=== PATIENT | female | born 1995 | race Caucasian/White ===

== ENCOUNTER → 2016-09-23 | Outpatient (CLI) | payer SELFPAY | LOC: RAD 15:14 | PROVIDERS: ATTEND Nurse Practitioner Women's Health | DX: Z34.01 Encounter for supervision of normal first pregnancy, first trimester (principal) | CPT/HCPCS: 76801 ==

== ENCOUNTER 2017-02-28 11:30 | Outpatient (CLI) | payer MEDICAID | END 2017-02-28 12:45 | disposition home or self-care (01) | LOC: LC 11:30 | PROVIDERS: ATTEND Obstetrics & Gynecology | PROC: 4A1HXCZ Monitoring of Products of Conception, Cardiac Rate, External Approach (ICD-10-PCS; principal; 2017-02-28) | DX: Z34.93 Encounter for supervision of normal pregnancy, unspecified, third trimester (principal); Z36 Encounter for antenatal screening of mother; Z3A.33 33 weeks gestation of pregnancy | CPT/HCPCS: 36415; 59025; 83036 ==

== ENCOUNTER 2017-03-02 19:41 | Outpatient (CLI) | payer MEDICAID ==
[2017-03-02 20:49] LABS: APPEARANCE,URINE CLEAR; BILIRUBIN,URINE NEGATIVE (NEGATIVE); GLUCOSE, URINE NEGATIVE (NEGATIVE); KETONES,URINE NEGATIVE (NEGATIVE); LEUKOCYTE ESTERASE,URINE NEGATIVE (NEGATIVE); NITRITE,URINE NEGATIVE (NEGATIVE); PROTEIN,URINE NEGATIVE (NEGATIVE); URINE SPECIFIC GRAVITY 1.005; UROBILINOGEN,URINE NEGATIVE mg/dL (<2.0)
[2017-03-02] MEDS ORDERED: RINGERS SOLUTION,LACTATED 1,000 ML IV PRN (20:56)
[2017-03-02 21:02] LABS: URINE BARBITURATES SCREEN NEGATIVE; URINE METHADONE SCREEN NEGATIVE; URINE OPIATES LOW NEGATIVE; URINE PHENCYCLIDINE SCREEN NEGATIVE
== END 2017-03-02 21:47 | disposition home or self-care (01) ==
LOC: LC 19:41
PROVIDERS: ATTEND Obstetrics & Gynecology
PROC: 4A1HXCZ Monitoring of Products of Conception, Cardiac Rate, External Approach (ICD-10-PCS; principal; 2017-03-02)
DX: Z34.93 Encounter for supervision of normal pregnancy, unspecified, third trimester (principal); Z36 Encounter for antenatal screening of mother; Z3A.33 33 weeks gestation of pregnancy
CPT/HCPCS: 80307; 81001

== ENCOUNTER 2017-03-02 21:58 | Emergency (ER) | payer MEDICAID ==
[2017-03-02] MEDS ORDERED: NORMAL SALINE 1000 ML 1,000 ML IV ONE (22:42)
[2017-03-03 00:04] LABS: ALANINE AMINOTRANSFERASE 17 U/L (9-52); ALBUMIN 3.5 g/dL (3.5-5.0); ALKALINE PHOSPHATASE 107 U/L (38-126); ANION GAP 9 (5-19); ASPARTATE AMINO TRANSFERASE 22 U/L (14-36); BILIRUBIN,DIRECT 0.3 mg/dL (0.0-0.4); BILIRUBIN,TOTAL 0.3 mg/dL (0.2-1.3); BLOOD UREA NITROGEN 10 mg/dL (7-20); CALCIUM 9.8 mg/dL (8.4-10.2); CARBON DIOXIDE 22 mmol/L (22-30); CHLORIDE 106 mmol/L (98-107); CREATININE RESULT 0.52 mg/dL (0.52-1.25); GLUCOSE 82 mg/dL (75-110); POTASSIUM 3.7 mmol/L (3.6-5.0); SODIUM 136.7 mmol/L (137-145); TOTAL PROTEIN 6.7 g/dL (6.3-8.2)
--- NOTE | 2017-03-03 00:05 | ER Document Report ---
ED General - General Chief Complaint: Diarrhea Stated Complaint: BLOOD IN STOOL Time Seen by Provider: 03/02/17 22:34 Notes: Patient is a 21-year-old female at 34 weeks who presents with 3 days of diarrhea, intermittently containing small streaks of blood. She denies any jia hematochezia or melena. She has not had any vomiting and notes she has been able to tolerate oral intake. No history of similar symptoms in the past. No known sick contacts. She was seen for a labor check earlier today and everything was noted to be normal. She denies any abdominal pain. No dysuria or flank pain. She has not had any fever or constitutional symptoms. Nothing improves or worsens her symptoms. TRAVEL OUTSIDE OF THE [place] IN LAST 30 DAYS: No - Related Data Allergies/Adverse Reactions: benztropine mesylate [From [employer] Allergy (Verified 03/02/17 22:20) Past Medical History - General Information source: Patient - Social History Smoking Status: Never Smoker Frequency of alcohol use: None Drug Abuse: None Lives with: Parents Family History: Reviewed & Not Pertinent Renal/ Medical History: Denies: Hx Peritoneal Dialysis Psychiatric Medical History: Reports: Hx Attention Deficit Hyperactivity Disorder, Hx Bipolar Disorder, Hx Depression - Immunizations Immunizations up to date: Yes Hx Diphtheria, Pertussis, Tetanus Vaccination: Yes Review of Systems - Review of Systems Notes: Constitutional: Negative for fever. HENT: Negative for sore throat. Eyes: Negative for visual changes. Cardiovascular: Negative for chest pain. Respiratory: Negative for shortness of breath. Gastrointestinal: Positive for diarrhea Genitourinary: Negative for dysuria. Musculoskeletal: Negative for back pain. Skin: Negative for rash. Neurological: Negative for headaches, weakness or numbness. 10 point ROS negative except as marked above and in HPI. Physical Exam - Vital signs Vitals: Temp Pulse Resp BP Pulse Ox 98.0 F 79 16 134/75 H 99 03/02/17 22:20 03/02/17 22:20 03/02/17 22:20 03/02/17 22:20 03/02/17 22:20 Interpretation: Normal Notes: PHYSICAL EXAMINATION: GENERAL: Well-appearing, well-nourished and in no acute distress. HEAD: Atraumatic, normocephalic. EYES: Pupils equal round and reactive to light, extraocular movements intact, sclera anicteric, conjunctiva are normal. ENT: nares patent, oropharynx clear without exudates. Moist mucous membranes. NECK: Normal range of motion, supple without lymphadenopathy LUNGS: Breath sounds clear to auscultation bilaterally and equal. No wheezes rales or rhonchi. HEART: Regular rate and rhythm without murmurs ABDOMEN: Gravid uterus, soft, nontender, normoactive bowel sounds. No guarding , no rebound. No masses appreciated. EXTREMITIES: Normal range of motion, no pitting or edema. No cyanosis. NEUROLOGICAL: No focal neurological deficits. Moves all extremities spontaneously and on command. PSYCH: Normal mood, normal affect. SKIN: Warm, Dry, normal turgor, no rashes or lesions noted. Course - Re-evaluation Re-evalutation: 03/03/17 00:02 Presentation of an overall well-appearing patient in no acute distress with complaints of diarrhea with intermittent blood in the stool. This is consistent with likely viral gastroenteritis. Patient has no abdominal tenderness on exam and specifically no tenderness in the RLQ, LLQ, RUQ. Overall well hydrated on exam. Able to tolerate oral intake here in the emergency department. Low clinical suspicion for any acute life-threatening etiology based on exam and history including acute cholecystitis, SBO, appendicitis, nephrolithiasis, or pylonephritis. CMP without evidence of acute hepatitis or significant dehydration. Will plan for discharge at this time with return precautions and followup recommendations. - Vital Signs Vital signs: Temp Pulse Resp BP Pulse Ox 98.2 F 77 17 113/66 98 03/03/17 00:38 03/03/17 00:38 03/03/17 00:38 03/03/17 00:38 03/03/17 00:38 - Laboratory Result Diagrams: 03/02/17 23:20 03/02/17 23:20 Laboratory results interpreted by me: 03/02/17 03/02/17 23:20 23:20 WBC 12.4 H RBC 3.68 L Hgb 10.9 L Hct 31.7 L Absolute Neutrophils 9.2 H Sodium 136.7 L Discharge - Discharge Clinical Impression: Diarrhea Qualifiers: Diarrhea type: unspecified type Qualified Code(s): R19.7 - Diarrhea, unspecified Condition: Good Disposition: HOME, SELF-CARE Additional Instructions: Your symptoms are likely due to a viral illness and should resolve in the next several days. Continue to stay hydrated with plenty of solution such as Gatorade or Pedialyte. Please return if you develop severe abdominal pain, pass out, become unable to tolerate any oral fluids for 12 more hours, or any other symptoms that are concerning to you.
[2017-03-03 00:06] LABS: ABSOLUTE EOSINOPHILS # (AUTO) 0.1 10^3/uL (0.0-0.6); ABSOLUTE LYMPHOCYTES (AUTO) 2.4 10^3/uL (0.5-4.7); ABSOLUTE MONOCYTES (AUTO) 0.6 10^3/uL (0.1-1.4); ABSOLUTE NEUT (AUTO) 9.2 10^3/uL (1.7-8.2); BASOPHILS % (AUTO) 0.3 % (0-2); EOSINOPHILS % (AUTO) 0.9 % (0-6); HEMATOCRIT 31.7 % (36.0-47.0); HEMOGLOBIN 10.9 g/dL (12.0-15.5); LYMPHOCYTES % (AUTO) 19.7 % (13-45); MEAN CORPUSCULAR HEMOGLOBIN 29.8 pg (27.0-33.4); MEAN CORPUSCULAR HGB CONC 34.5 g/dL (32.0-36.0); MEAN CORPUSCULAR VOLUME 86 fl (80-97); MONOCYTES % (AUTO) 4.8 % (3-13); RED BLOOD COUNT 3.68 10^6/uL (3.72-5.28); SEGMENTED NEUTROPHILS % (AUTO) 74.3 % (42-78); WHITE BLOOD COUNT 12.4 10^3/uL (4.0-10.5)
[2017-03-03 00:44] VITALS: BP 113/66
== END 2017-03-03 00:35 | disposition home or self-care (01) ==
LOC: ER 21:58
DX: O26.893 Other specified pregnancy related conditions, third trimester (principal); R19.7 Diarrhea, unspecified; O99.613 Diseases of the digestive system complicating pregnancy, third trimester; K92.1 Melena; Z3A.34 34 weeks gestation of pregnancy; Z88.8 Allergy status to other drugs, medicaments and biological substances
CPT/HCPCS: 99284; 96360; 36415; 85025; 80053; J7030

== ENCOUNTER 2017-03-21 10:06 | Outpatient (CLI) | payer MEDICAID ==
[2017-03-21 11:03] LABS: APPEARANCE,URINE CLOUDY; BILIRUBIN,URINE NEGATIVE (NEGATIVE); GLUCOSE, URINE NEGATIVE (NEGATIVE); KETONES,URINE NEGATIVE (NEGATIVE); LEUKOCYTE ESTERASE,URINE LARGE (NEGATIVE); NITRITE,URINE NEGATIVE (NEGATIVE); PROTEIN,URINE NEGATIVE (NEGATIVE); URINE SPECIFIC GRAVITY 1.012; UROBILINOGEN,URINE NEGATIVE mg/dL (<2.0)
[2017-03-21 11:13] LABS: URINE BARBITURATES SCREEN NEGATIVE; URINE METHADONE SCREEN NEGATIVE; URINE OPIATES LOW NEGATIVE; URINE PHENCYCLIDINE SCREEN NEGATIVE
--- NOTE | 2017-03-21 11:33 | Non Stress Test Report ---
Non Stress Test Datetime Report Generated by CPN: 03/21/2017 11:33 DEMOGRAPHIC Test Number: 3 EGA NST: 36.5 EGA NST: 34.0 EGA NST: 33.5 INDICATION Indication for Study: Ordered by Provider Indication for Study (NST) Other: LC MONITORING Monitor Explained: Monitor Explained; Test Explained; Patient Verbalized Understanding Monitor Explained: Monitor Explained; Test Explained; Patient Verbalized Understanding Monitor Explained: Monitor Explained; Test Explained; Patient Verbalized Understanding Time on Monitor: 03/21/2017 10:39 Time on Monitor: 03/02/2017 20:11 Time on Monitor: 02/28/2017 11:42 Time off Monitor: 03/21/2017 11:20 Time off Monitor: 03/02/2017 21:43 NST Duration: 41 NST Duration: 92 NST INTERVENTIONS NST Interventions: PO Hydration; Reposition Patient NST Interventions: PO Hydration; IV Fluids Physician Notified NST: H Jairo CNM Physician Notified NST: Dr. Saenz BABY A: [id number] BABY A Movement : Present Movement : Present Contraction Frequency : irregular Contraction Frequency : irregular FHR Baseline : 145 FHR Baseline : 120 Accelerations : 15X15 Accelerations : 15X15 Decelerations : None Decelerations : None Variability : Moderate 6-25bpm Variability : Moderate 6-25bpm NST Review: Meets Criteria for Reactive NST NST Review: Meets Criteria for Reactive NST NST Review: Meets Criteria for Reactive NST NST Review and Verified By : Logan Jasmine RNC NST Review and Verified By : Rajesh Finn RN NST Review and Verified By : Caren Kaur RNC NST Results: Reactive NST Results: Reactive NST REPORT Report Trigger: Send Report
--- NOTE | 2017-03-21 12:07 | RADIOLOGY REPORT (SQ) ---
EXAM DESCRIPTION: U/S OB LIMITED COMPLETED DATE/TIME: 03/21/2017 11:58 am REASON FOR STUDY: MINNA, leaking fluid COMPARISON: OB ultrasound 09/23/2016 TECHNIQUE: Limited transabdominal grayscale ultrasound for evaluation of specific requested obstetri chandni parameters. LIMITATIONS: None. FINDINGS: CERVICAL LENGTH: Not well seen transabdominally MINNA: Total MINNA, 19.6 cm FHR: 139 beats per minute. PRESENTATION: Cephalic. OTHER: Anterior placenta IMPRESSION: Total MINNA 19.6 cm Trimester of : Third trimester - 28 weeks to delivery. TECHNICAL DOCUMENTATION: JOB ID: [id number] [facility]- All Rights Reserved
[2017-03-21 14:37] LABS: CHLAM PCR NOT DETECTED (NOT DETECT)
== END 2017-03-21 12:13 | disposition home or self-care (01) ==
LOC: LC 10:06
PROVIDERS: ATTEND Obstetrics & Gynecology
PROC: 4A1HXCZ Monitoring of Products of Conception, Cardiac Rate, External Approach (ICD-10-PCS; principal; 2017-03-21)
DX: Z34.93 Encounter for supervision of normal pregnancy, unspecified, third trimester (principal)
CPT/HCPCS: 59025; 87210; 81001; 87081; 80307; 87491; 87591; 76815; Q0114

== ENCOUNTER 2017-03-21 13:49 | Inpatient (IN) | payer MEDICAID ==
[2017-03-21 14:31] LABS: APPEARANCE,URINE SLIGHTLY-CLOUDY; BILIRUBIN,URINE NEGATIVE (NEGATIVE); GLUCOSE, URINE NEGATIVE (NEGATIVE); KETONES,URINE NEGATIVE (NEGATIVE); LEUKOCYTE ESTERASE,URINE LARGE (NEGATIVE); NITRITE,URINE NEGATIVE (NEGATIVE); PROTEIN,URINE 30 mg/dL (NEGATIVE); URINE SPECIFIC GRAVITY 1.015; UROBILINOGEN,URINE NEGATIVE mg/dL (<2.0)
[2017-03-21 15:01] LABS: URINE BARBITURATES SCREEN NEGATIVE; URINE METHADONE SCREEN NEGATIVE; URINE OPIATES LOW NEGATIVE; URINE PHENCYCLIDINE SCREEN NEGATIVE
[2017-03-21] MEDS ORDERED: PENICILLIN G-K 5 MILLION UNIT VIAL ONE (15:26)
[2017-03-21 15:31] LABS: ABSOLUTE EOSINOPHILS # (AUTO) 0.1 10^3/uL (0.0-0.6); ABSOLUTE LYMPHOCYTES (AUTO) 1.9 10^3/uL (0.5-4.7); ABSOLUTE MONOCYTES (AUTO) 0.5 10^3/uL (0.1-1.4); ABSOLUTE NEUT (AUTO) 11.4 10^3/uL (1.7-8.2); BASOPHILS % (AUTO) 0.3 % (0-2); EOSINOPHILS % (AUTO) 0.4 % (0-6); HEMATOCRIT 36.1 % (36.0-47.0); HEMOGLOBIN 12.5 g/dL (12.0-15.5); HGB HCT DIFFERENCE 1.4; LYMPHOCYTES % (AUTO) 13.5 % (13-45); MEAN CORPUSCULAR HEMOGLOBIN 29.6 pg (27.0-33.4); MEAN CORPUSCULAR HGB CONC 34.7 g/dL (32.0-36.0); MEAN CORPUSCULAR VOLUME 86 fl (80-97); MONOCYTES % (AUTO) 3.7 % (3-13); RED BLOOD COUNT 4.22 10^6/uL (3.72-5.28); RED CELL DISTRIBUTION WIDTH 12.9 % (11.5-14.0); SEGMENTED NEUTROPHILS % (AUTO) 82.1 % (42-78); WHITE BLOOD COUNT 13.9 10^3/uL (4.0-10.5)
[2017-03-21] MEDS ORDERED: OXYTOCIN/NORMAL SALINE 20 UNIT/1,000 ML RTUINJ ONE (17:05)
[2017-03-21] MEDS ORDERED: BUPIVACAINE HCL 0.25 % INJ/PF (2.5 MG/1 ML) 30 ML VIAL ONE (17:30)
[2017-03-21] MEDS ORDERED: FENTANYL/BUPIVACAINE/NS/PF 200 MCG/100 ML RTUINJ EPI ONE (17:30)
[2017-03-21] MEDS ORDERED: EPHEDRINE SULFATE INJ 50 MG/1 ML AMPULE ONE (17:30)
[2017-03-21] MEDS ORDERED: MEASLES,MUMPS&RUBELLA VACC/PF 0.5 ML VIAL SUBCUT PRN (18:57)
[2017-03-21] MEDS ORDERED: NA PHOS,M-B/NA PHOS,DI-BA (ADULT) 133 ML ENEMA PR PRN (18:57)
[2017-03-21] MEDS ORDERED: ACETAMINOPHEN 650 MG SUPP.RECT PR PRN (18:57)
[2017-03-21] MEDS ORDERED: GLYCERIN/WITCH HAZEL LEAF 1 EACH MED..PAD TP PRN (18:57)
[2017-03-21] MEDS ORDERED: PSEUDOEPHEDRINE HCL 30 MG TABLET PO PRN (18:57)
[2017-03-21] MEDS ORDERED: DIPHENHYDRAMINE HCL 25 MG CAPSULE PO PRN (18:57)
[2017-03-21] MEDS ORDERED: PROMETHAZINE HCL 25 MG TABLET PO PRN (18:57)
[2017-03-21] MEDS ORDERED: DIBUCAINE 1% OINTMENT 28 GM TP PRN (18:57)
[2017-03-21] MEDS ORDERED: PROMETHAZINE HCL 25 MG SUPP.RECT PR PRN (18:57)
[2017-03-21] MEDS ORDERED: BENZOCAINE/MENTHOL AEROSOL SPRAY 56 ML TOP PRN (18:57)
[2017-03-21] MEDS ORDERED: MAGNESIUM HYDROXIDE SUSP 30 ML UDCUP PO PRN (18:57)
[2017-03-21] MEDS ORDERED: DIPH/PERTUSS(ACELL)/TETANUS VAC/PF 0.5 ML SYR (>=10YO) IM PRN (18:57)
[2017-03-21] MEDS ORDERED: ZOLPIDEM TARTRATE 5 MG TABLET PO PRN (18:57)
[2017-03-21] MEDS ORDERED: ACETAMINOPHEN WITH CODEINE #3 TABLET PO PRN ×2 (18:57)
[2017-03-21] MEDS ORDERED: PROMETHAZINE HCL INJ 25 MG/1 ML VIAL IV PRN (18:57)
[2017-03-21] MEDS ORDERED: OXYTOCIN/NORMAL SALINE 20 UNIT/1,000 ML RTUINJ IV PRN (18:57)
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
[2017-03-21] MEDS: IBUPROFEN 800 MG TABLET PO SCH (22:08)
[2017-03-21] MEDS: FAMOTIDINE 20 MG TABLET PO SCH (22:09)
[2017-03-22] MEDS: IBUPROFEN 800 MG TABLET PO SCH ×3 (05:46→21:19)
[2017-03-22 07:29] LABS: HEMATOCRIT 29.7 % (36.0-47.0); HGB HCT DIFFERENCE 1.2; MEAN CORPUSCULAR HEMOGLOBIN 29.7 pg (27.0-33.4); MEAN CORPUSCULAR HGB CONC 34.6 g/dL (32.0-36.0); MEAN CORPUSCULAR VOLUME 86 fl (80-97); RED BLOOD COUNT 3.46 10^6/uL (3.72-5.28); WHITE BLOOD COUNT 17.4 10^3/uL (4.0-10.5)
[2017-03-22 07:30] LABS: HEMOGLOBIN 10.3 g/dL (12.0-15.5)
--- NOTE | 2017-03-22 09:31 | PDOC PROGRESS REPORT ---
Subjective-OB Subjective: Post Delivery Day: 1 21 year old. Denies any needs at this time, states lochia is stable, pain well controlled, voiding without difficulty. Physical Exam (OB) Vital Signs: Temp Pulse Resp BP Pulse Ox 97.9 F 77 16 124/75 99 03/22/17 08:25 03/22/17 08:25 03/22/17 08:25 03/22/17 08:25 03/22/17 08:25 Intake & Output 03/21/17 03/22/17 03/23/17 06:59 06:59 06:59 Weight 89.1 kg - Lochia Lochia Amount: Small 10-25 ml Lochia Color: Rubra/Red - Abdomen Description: Soft, Flat Hernia Present: No Fundal Description: Firm Fundal Height: u/u - u/2 Objective-Diagnostic Laboratory: 03/22/17 07:06 03/21/17 03/21/17 03/21/17 14:00 14:50 14:50 WBC 13.9 H RBC 4.22 Hgb 12.5 Hct 36.1 MCV 86 MCH 29.6 MCHC 34.7 RDW 12.9 Plt Count 234 Seg Neutrophils % 82.1 H Lymphocytes % 13.5 Monocytes % 3.7 Eosinophils % 0.4 Basophils % 0.3 Absolute Neutrophils 11.4 H Absolute Lymphocytes 1.9 Absolute Monocytes 0.5 Absolute Eosinophils 0.1 Absolute Basophils 0.0 Urine Color YELLOW Urine Appearance SLIGHTLY-CLOUDY Urine pH 6.0 Ur Specific Hagerman 1.015 Urine Protein 30 H Urine Glucose (UA) NEGATIVE Urine Ketones NEGATIVE Urine Blood MODERATE H Urine Nitrite NEGATIVE Ur Leukocyte Esterase LARGE H Blood Type B POSITIVE Antibody Screen NEGATIVE 03/22/17 07:06 WBC 17.4 H RBC 3.46 L Hgb 10.3 L D Hct 29.7 L MCV 86 MCH 29.7 MCHC 34.6 RDW 13.0 Plt Count 187 Seg Neutrophils % Lymphocytes % Monocytes % Eosinophils % Basophils % Absolute Neutrophils Absolute Lymphocytes Absolute Monocytes Absolute Eosinophils Absolute Basophils Urine Color Urine Appearance Urine pH Ur Specific Hagerman Urine Protein Urine Glucose (UA) Urine Ketones Urine Blood Urine Nitrite Ur Leukocyte Esterase Blood Type Antibody Screen
[2017-03-22] MEDS: PRENATAL VITAMIN W-O CA NO5/FE FUMARATE/FA CAPSULE PO SCH (10:14)
[2017-03-22] MEDS: FERROUS SULFATE 325 MG TABLET PO SCH ×2 (10:14→18:09)
[2017-03-22] MEDS: SENNOSIDES/DOCUSATE 8.6-50 MG 1 EACH TABLET PO SCH (10:14)
[2017-03-22] MEDS: FAMOTIDINE 20 MG TABLET PO SCH ×2 (10:15→21:18)
[2017-03-22] MEDS: DOCUSATE SODIUM 100 MG CAPSULE PO SCH ×2 (10:15→18:09)
[2017-03-22 22:43] VITALS: BP 132/73
[2017-03-23] MEDS: IBUPROFEN 800 MG TABLET PO SCH ×2 (05:56→14:38)
--- NOTE | 2017-03-23 09:08 | PDOC DISCHARGE SUMMARY ---
Final Diagnosis Discharge Date: 03/23/17 - Final Diagnosis (1) Acute blood loss anemia Is this a current diagnosis for this admission?: Yes (2) Normal vaginal delivery Is this a current diagnosis for this admission?: Yes (3) History of depression Is this a current diagnosis for this admission?: Yes Discharge Data - Discharge Medication Home Medications: Vit,Calc76/Iron/Folic [Pnv 29-1 Tablet] 1 tab PO DAILY 02/28/17 Docusate Sodium [Colace 100 mg Capsule] 100 mg PO BID #60 capsule 03/23/17 Ferrous Sulfate [Feosol 325 mg Tablet] 325 mg PO BID #60 tablet 03/23/17 Ibuprofen [Motrin 800 mg Tablet] 800 mg PO Q8 #60 tablet 03/23/17 Gestational Age: 36.4 Reason(s) for Admission: Onset of Labor, PROM - gbs unknown Procedures: NST Intrapartum Procedure(s): Spontaneous Vaginal Delivery - [place] Data Baby 1 Male at 1 minute: 9 at 5 minutes: 10 Weight: 2640 kg Home with Mother: Yes Complications: Yes - pprom - Diagnosis Test Laboratory: Temp Pulse Resp BP Pulse Ox 98.6 F 79 18 132/73 H 99 03/22/17 20:25 03/22/17 20:25 03/22/17 20:25 03/22/17 20:25 03/22/17 20:25 03/21/17 03/21/17 03/22/17 14:00 14:50 07:06 RBC 4.22 3.46 L Hgb 12.5 10.3 L D Hct 36.1 29.7 L Urine Opiates Screen NEGATIVE - Discharge information/Instructions Discharge Activity: Activity As Tolerated, Pelvic Rest, No tub bath Discharge Diet: Regular Disposition: HOME, SELF-CARE Follow up with: [facility] in: 1, Weeks - extensive social hx, ppd
[2017-03-23] MEDS: PRENATAL VITAMIN W-O CA NO5/FE FUMARATE/FA CAPSULE PO SCH (09:11)
[2017-03-23] MEDS: FAMOTIDINE 20 MG TABLET PO SCH (09:11)
[2017-03-23] MEDS: FERROUS SULFATE 325 MG TABLET PO SCH (09:12)
[2017-03-23] MEDS: SENNOSIDES/DOCUSATE 8.6-50 MG 1 EACH TABLET PO SCH (09:13)
[2017-03-23] MEDS: DOCUSATE SODIUM 100 MG CAPSULE PO SCH (09:20)
--- NOTE | 2017-03-24 09:49 | Delivery Summary ---
Del Sum A-C Datetime Report Generated by CPN: 03/24/2017 09:49 DELIVERY PERSONNEL DELIVERY PERSONNEL: [id number] Delivery Doctor:: Gayathri Elizondo MD Labor and Delivery Nurse:: Juliet Monroe, RNC Labor and Delivery Nurse:: Daily Jones RNu Nursery Nurse:: Obi Monroe RNC Leather Leveler/CANOP[employer] STRINGER: Ilene Salinas CNA II MATERNAL INFORMATION Delivery Anesthesia: Epidural Medications After Delivery: Pitocin Bolus-Please Comment Estimated Blood Loss (ml): 200 Maternal Complications: None LABOR SUMMARY EDC: 04/13/2017 00:00 No. Babies in Womb: 1 (Annotations: Data stored by [facility] on behalf of user) Attempted: No Labor Anesthesia: Epidural LABOR INFORMATION Reason for Induction: Premature Rupture of Membranes Onset of Labor: 03/21/2017 13:30 Complete Dilatation: 03/21/2017 18:28 Oxytocin: Augmentation Group B Beta Strep: 1 NO GROUP B STREPTOCOCCUS RECOVERED Group B Beta Strep: unknown Steroids Given: None Reason Steroids Not Administered: Not Applicable MEMBRANES Membranes Rupture Method: Spontaneous Rupture of Membranes: 03/21/2017 13:30 Length of Rupture (hr): 5.03 Amniotic Fluid Color: Clear Amniotic Fluid Amount: Small Amniotic Fluid Odor: Normal STAGES OF LABOR Stage 1 hr: 4 Stage 1 min: 58 Stage 2 hr: 0 Stage 2 min: 4 Stage 3 hr: 0 Stage 3 min: 5 Total Time in Labor hr: 5 Total Time in Labor min: 7 VAGINAL DELIVERY Episiotomy: None Laceration Type: None Laceration Repair: Not Applicable Sponge Count Correct: Yes CSECTION DELIVERY Primary Indication: N/A Secondary Indication: N/A CSection Incidence: N/A Labor: N/A Elective: N/A CSection Incision: N/A BABY A INFORMATION Infant Delivery Date/Time: 03/21/2017 18:32 Method of Delivery: Vaginal Born in Route : No : N/A Forceps: N/A Vacuum Extraction: N/A Shoulder Dystocia : No PRESENTATION/POSITION BABY A Presentation: Cephalic Cephalic Presentation: Vertex Vertex Position: Left Occipital Anterior Breech Presentation: N/A PLACENTA INFORMATION BABY A Placenta Delivery Time : 03/21/2017 18:37 Placenta Method of Delivery: Spontaneous Placenta Status: Delivered SCORES BABY A Heart Rate 1 min: >100 bpm Resp Effort 1 min: Good Cry Reflex Irritability 1 min: Cough or Sneeze or Pulls Away Muscle Tone 1 min: Active Motion Color 1 min: Body Mascot, Extremities Blue Resuscitation Effort 1 min: Tactile Stimulation SCORE 1 MIN: 9 Heart Rate 5 min: >100 bpm Resp Effort 5 min: Good Cry Reflex Irritability 5 min: Cough or Sneeze or Pulls Away Muscle Tone 5 min: Active Motion Color 5 min: Completely Mascot Resuscitation Effort 5 min: N/A SCORE 5 MIN: 10 Resuscitation Effort 10 min: N/A INFANT INFORMATION BABY A Gestational Age at Delivery: 36.5 Gestational Status: Late - 34- 36.6 Weeks Infant Outcome : Liveborn Infant Condition : Stable Infant Sex: Female IDENTIFICATION BABY A Infant Verification Date/Time: 03/21/2017 18:53 ID Band Number: [id number] Mother's Name Verified: Yes Infant RN Verifying Infant: Caren Camp RNC Additional Verifying Personnel: D Regan US WEIGHT/LENGTH BABY A Birthweight (gm): 2640 Infant Weight (lb): 5 Weight (oz): 13 Infant Length (in): 18.50 Infant Length (cm): 46.99 CORD INFORMATION BABY A No. Cord Vessels: 3 Nuchal Cord : Around Neck x1, Loose Cord Blood Taken: Yes-For Storage (Mom's Blood type +) Infant Suction: None ASSESSMENT BABY A Infant Complications: None Physical Findings at Delivery: Within Normal Limits Infant Respirations: Appears Normal Skin to Skin: Yes Party Host/Hostess/ALS Called : No Care By: D Bellavance RNC Transferred To: Remains with Mother BABY B INFORMATION : N/A SIGNATURES Signature: with User ID: Irena
== END 2017-03-23 16:33 | disposition home or self-care (01) | DRG 775 ==
LOC: LC 13:49 → LR 14:37 → 2N 20:45
PROVIDERS: ADMIT Obstetrics & Gynecology; ATTEND Obstetrics & Gynecology
PROC: 10E0XZZ Delivery of Products of Conception, External Approach (ICD-10-PCS; principal; 2017-03-21)
PROC: 4A1HXCZ Monitoring of Products of Conception, Cardiac Rate, External Approach (ICD-10-PCS; 2017-03-21)
DX: O60.14X0 Preterm labor third trimester with preterm delivery third trimester, not applicable or unspecified (principal); D62 Acute posthemorrhagic anemia; O99.354 Diseases of the nervous system complicating childbirth; O99.324 Drug use complicating childbirth; O69.81X0 Labor and delivery complicated by cord around neck, without compression, not applicable or unspecified; F12.90 Cannabis use, unspecified, uncomplicated; O99.02 Anemia complicating childbirth; O99.334 Smoking (tobacco) complicating childbirth; F17.200 Nicotine dependence, unspecified, uncomplicated; Z62.810 Personal history of physical and sexual abuse in childhood; F32.9 Major depressive disorder, single episode, unspecified; Z3A.36 36 weeks gestation of pregnancy; Z37.0 Single live birth
CPT/HCPCS: 36415; 59025; 80307; 81005; 82962; 85025; 85027; 86592; 86850; 86900; 86901; J2540; J2590; J3490

== ENCOUNTER 2017-09-26 10:10 | Emergency (ER) | payer MEDICAID ==
[2017-09-26] MEDS ORDERED: GUAIFENESIN 600 MG TABLET.SA PO ONE (11:23)
[2017-09-26] MEDS ORDERED: LORATADINE 10 MG TABLET PO ONE (11:23)
[2017-09-26] MEDS ORDERED: PSEUDOEPHEDRINE HCL 30 MG TABLET PO ONE (11:23)
[2017-09-26] MEDS ORDERED: IPRATROPIUM/ALBUTEROL 0.5-2.5 MG/3 ML AMPUL NEB ONE (11:23)
[2017-09-26] MEDS ORDERED: PREDNISONE 20 MG TABLET PO ONE (11:23)
--- NOTE | 2017-09-26 11:28 | ER Document Report ---
ED Respiratory Problem - General Chief Complaint: Cold Symptoms Stated Complaint: COUGH Time Seen by Provider: 09/26/17 11:13 Mode of Arrival: Ambulatory Information source: Patient Notes: 22-year-old female presents to ED for cough cold congestion chest tightness feeling like she cannot get her breath cough or when she takes a deep breath cold flashes and headache 3 days. TRAVEL OUTSIDE OF THE [place] IN LAST 30 DAYS: No - HPI Patient complains to provider of: Cough Onset: Other Duration: Continuous - 3 days Quality of pain: Other - Type Severity: Severe Pain Level: 5 Context: Smoker Chest pain/discomfort: Tightness Cough: Nonproductive Sputum amount: None Associated symptoms: Chest pain/discomfort, Chills, Congestion, Cough, PND, Runny nose, Sinus pain/pressure Similar symptoms previously: Yes Recently seen / treated by doctor: No - Related Data Allergies/Adverse Reactions: benztropine mesylate [From Cogentin] Allergy (Mild, Verified 09/26/17 10:21) Past Medical History - General Information source: Patient - Social History Smoking Status: Current Some Day Smoker Cigarette use (# per day): Yes - 2-3 times a week Chew tobacco use (# tins/day): No Smoking Education Provided: Yes - 4 minutes Frequency of alcohol use: Occasional Drug Abuse: Marijuana - Couple times a week Occupation: none Lives with: Spouse/Significant other Family History: Arthritis, CAD, DM, Hyperlipidemia, Hypertension, Malignancy, Thyroid Disfunction. denies: COPD, CVA Patient has suicidal ideation: No Patient has homicidal ideation: No - Past Medical History Cardiac Medical History: Reports: None Pulmonary Medical History: Reports: Hx Bronchitis EENT Medical History: Reports: None Neurological Medical History: Reports: None Endocrine Medical History: Reports: None Renal/ Medical History: Reports: Other - Kidney infections bladder reflux Malignancy Medical History: Reports: None GI Medical History: Reports: None Musculoskeltal Medical History: Reports Hx Musculoskeletal Trauma Skin Medical History: Reports None Psychiatric Medical History: Reports: Hx Attention Deficit Hyperactivity Disorder, Hx Bipolar Disorder, Hx Depression Traumatic Medical History: Reports: Hx Fractures - Foot Infectious Medical History: Reports: None Surgical Hx: Negative Past Surgical History: Reports: None - Immunizations Immunizations up to date: Yes Hx Diphtheria, Pertussis, Tetanus Vaccination: Yes Review of Systems - Review of Systems Constitutional: Chills, Recent illness EENT: Nose pain, Nose congestion, Nose discharge, Sinus pressure, Sinus discharge Cardiovascular: No symptoms reported Respiratory: Cough, Short of breath Gastrointestinal: No symptoms reported Genitourinary: No symptoms reported Female Genitourinary: No symptoms reported Musculoskeletal: No symptoms reported Skin: No symptoms reported Hematologic/Lymphatic: No symptoms reported Neurological/Psychological: No symptoms reported Physical Exam - Vital signs Vitals: Temp Pulse Resp BP Pulse Ox 98.8 F 81 20 128/74 H 98 09/26/17 10:22 09/26/17 10:22 09/26/17 10:22 09/26/17 10:22 09/26/17 10:22 Interpretation: Normal - General General appearance: Appears well, Alert - HEENT Head: Normocephalic, Atraumatic Eyes: Normal Pupils: PERRL Ears: Normal External canal: Normal Tympanic membrane: Normal Sinus: Normal Nasal: Purulent discharge, Swelling Mouth/Lips: Normal Mucous membranes: Normal Pharynx: Post nasal drainage Neck: Normal - Respiratory Respiratory status: No respiratory distress Chest status: Nontender Breath sounds: Nonproductive cough, Wheezing Chest palpation: Normal - Cardiovascular Rhythm: Regular Heart sounds: Normal auscultation Murmur: No - Abdominal Inspection: Normal Distension: No distension Bowel sounds: Normal Tenderness: Nontender Organomegaly: No organomegaly - Back Back: Normal, Nontender - Extremities General upper extremity: Normal inspection, Nontender, Normal color, Normal ROM , Normal temperature General lower extremity: Normal inspection, Nontender, Normal color, Normal ROM , Normal temperature, Normal weight bearing. No: Los's sign - Neurological Neuro grossly intact: Yes Cognition: Normal Orientation: AAOx4 [place] Coma Scale Eye Opening: Spontaneous [place] Coma Scale Verbal: Oriented [place] Coma Scale Motor: Obeys Commands [place] Coma Scale Total: 15 Speech: Normal Motor strength normal: LUE, RUE, LLE, RLE Sensory: Normal - Psychological Associated symptoms: Normal affect, Normal mood - Skin Skin Temperature: Warm Skin Moisture: Dry Skin Color: Normal Course - Re-evaluation Re-evalutation: 09/26/17 21:35 Patient was treated with Claritin 10 mg, Sudafed 30 mg, Mucinex 100 mg, albuterol nebulizer 2, DuoNeb 1 and Decadron 10 mg IM for her cough cold congestion wheezing and shortness of breath. Patient states she felt much better after the treatments. Her chest x-ray was negative no acute illnesses at this time. Patient was discharged home with instructions on upper respiratory infection and medications for treatment of this. Patient to follow- up with her primary doctor. - Vital Signs Vital signs: Temp Pulse Resp BP Pulse Ox 98.5 F 101 H 20 114/83 98 09/26/17 13:30 09/26/17 13:30 09/26/17 13:30 09/26/17 13:30 09/26/17 13:30 - Diagnostic Test Radiology reviewed: Image reviewed, Reports reviewed Discharge - Discharge Clinical Impression: URI (upper respiratory infection) Qualifiers: URI type: unspecified URI Qualified Code(s): J06.9 - Acute upper respiratory infection, unspecified Condition: Stable Disposition: HOME, SELF-CARE Instructions: Family Physicians / Practices Additional Instructions: UPPER RESPIRATORY ILLNESS: You have a viral infection of the respiratory passages -- a "cold." This common infection causes nasal congestion, drainage, and often sore throat and cough. It is highly contagious. The disease usually lasts about 10 to 14 days. There is no "cure" for the viral infection -- it must run its course. If there is a complication, such as bacterial infection in the nose, sinuses, middle ear, or bronchial tubes, antibiotics may be required. The antibiotics won't affect the virus. Drink plenty of fluids. A humidifier may help. An expectorant medication or decongestant may make you more comfortable. Use acetaminophen or ibuprofen for fever or aches. See the doctor if fever persists over two days, if there is any significant worsening of your symptoms, or if you simply fail to improve as expected. You will treated with prednisone 60 mg, albuterol nebs 2, DuoNeb 1, Claritin 10 mg, Sudafed 30 mg, Mucinex 600 mg, and you need to take Flonase 1 spray each nostril as per instructions on box. I will give you an albuterol inhaler. You will need to take 2 puffs every 4-6 hours as needed for wheezing and you need to follow-up with your primary doctor. BRONCHOSPASM: You have tightness in the bronchial tubes, called bronchospasm. This often occurs with bronchial infections. Allergies, inhaled chemicals, and polluted or cold air can also provoke bronchospasm. It's more likely in patients with asthma in the family. Emergency treatment of bronchospasm may include adrenaline shots or bronchodilator aerosol. You may feel lightheaded and have a rapid pulse for an hour or two. Rest and get plenty of fluids. At home, we'll treat you with a bronchodilator inhaler. Antibiotics and corticosteroids may be required for some patients. Until you recover, avoid chemical fumes, dusts, pollens, and exercising in very cold or dry air. If you smoke, stop now!! If you develop a fever, increased wheezing, chest pain, or severe shortness of breath, you should contact the doctor immediately. DECONGESTANT MEDICATION: A decongestant medicine has been suggested. Often this medicine is combined in the same tablet with an antihistamine or expectorant. This type of medicine is helpful in treating a bad cold or sinus condition, as well as in treatment of the nasal congestion of hay fever. It is not of much benefit for lung infections. Decongestant medicines are related to stimulants. They can cause an increase in blood pressure and heart rate. Persons with heart disease and high blood pressure should not take decongestants without discussing this with the physician. If you develop palpitations, chest pain, headache, or tremors, stop the medicine and consult your physician. COUGH-SUPPRESSANT & EXPECTORANT MEDICATION: You are to use a cough medication as needed for relief of symptoms. This medicine is a combination of an expectorant (to make the mucous thinner and more easily "coughed up") and a cough suppressant (to reduce the frequency of coughing). The cough-suppressant medicine is related to narcotics. You may experience mild nausea and sleepiness. Some patients who are very sensitive to narcotics may have stomach pain from this medicine. Taking the medicine with food reduces these side effects. Do not drive or work with machinery until you know how this medicine affects you. The expectorant should have no side effects. Iodine-containing expectorants (such as organidin) should not be taken by persons with active thyroid disease unless approved by your doctor. Call the doctor if you develop shortness of breath, hives, rash, itching, lightheadedness, or severe nausea and vomiting. INHALED BRONCHODILATORS: You have received a treatment of and/or prescription for an inhaled bronchodilator -- a medication which stimulates the airways in the lung to dilate. This improves the flow of air in asthma, bronchitis, and emphysema. These medicines have some similarity to adrenaline, and can cause similar side effects: shakiness, racing heart, and a sense of nervousness. These side effects decrease with time. Contact your doctor if these side effects are severe. Do not over-use the medicine. Too-frequent use of the inhaler may make it ineffective. Call your doctor if the inhaler is not controlling your symptoms at the prescribed doses. STEROID MEDICATION: You have been given an injection of or oral medicine of the cortisone/ steroid class. This medication is used to control inflammation or allergy. Davide t is usually only given for a short period of time, until the acute process subsides. There are usually no side effects from short-term use of cortisone-like medications. Some persons feel an increased sense of well-being and are not sleepy at bedtime. Long-term use of cortisone medications is best avoided, unless required for a severe condition. If your condition does not remit, or relapses after the course of corticosteroid medication, you should consult your physician. USE OF ACETAMINOPHEN (Tylenol): Acetaminophen may be taken for pain relief or fever control. It's much safer than aspirin, offering a wider range of "safe" dosages. It is safe during . Some brand names are Tylenol, Panadol, Datril, Anacin 3, Tempra, and Liquiprin. Acetaminophen can be repeated every four hours. The following are maximum recommended dosages: >89 pounds or adults 650 mg to 900 mg Acetaminophen can be repeated every four hours. Maximum dose not to exceed 4000 mg a day. SMOKING: If you smoke, you should stop smoking. The tar and chemicals in cigarette smoke are harmful. Smoking has been shown to cause: emphysema chronic bronchitis lung cancer mouth and throat cancer stomach and pancreas cancer premature aging defects In addition, smoking increases ear and lung infections in children of smokers. FOLLOW-UP CARE: If you have been referred to a physician for follow-up care, call the physician s office for an appointment as you were instructed or within the next two days. If you experience worsening or a significant change in your symptoms, notify the physician immediately or return to the Emergency Department at any time for re-evaluation. Forms: Smoking Cessation Education, Parent Work Note
[2017-09-26] MEDS: ALBUTEROL SULFATE 0.083% NEB 2.5 MG/3 ML AMPUL NEB SCH ×2 (11:46→11:47)
--- NOTE | 2017-09-26 11:54 | RADIOLOGY REPORT (SQ) ---
EXAM DESCRIPTION: CHEST PA/LAT COMPLETED DATE/TIME: 09/26/2017 11:36 am REASON FOR STUDY: cough cold congestion COMPARISON: None. EXAM PARAMETERS: NUMBER OF VIEWS: two views TECHNIQUE: Digital Frontal and Lateral radiographic views of the chest acquired. RADIATION DOSE: NA LIMITATIONS: none FINDINGS: LUNGS AND PLEURA: No opacities, masses or pneumothorax. No pleural effusion. MEDIASTINUM AND HILAR STRUCTURES: No masses or contour abnormalities. HEART AND VASCULAR STRUCTURES: Heart normal size. No evidence for failure. BONES: No acute findings. HARDWARE: None in the chest. OTHER: No other significant finding. IMPRESSION: NO SIGNIFICANT RADIOGRAPHIC FINDING IN THE CHEST. TECHNICAL DOCUMENTATION: JOB ID: [id number] [email or web address]- All Rights Reserved Reading location - IP/workstation name: [email or web address]
[2017-09-26] MEDS ORDERED: ALBUTEROL SULFATE HFA (90 MCG/PUFF) 8 GM MDI (1 MDI/ER DISP) IH ONE (13:04)
[2017-09-26 13:31] VITALS: BP 114/83
== END 2017-09-26 13:31 | disposition home or self-care (01) ==
LOC: ER 10:10
DX: J06.9 Acute upper respiratory infection, unspecified (principal); R05 Cough; R09.81 Nasal congestion; R07.9 Chest pain, unspecified; R51 Headache; R09.82 Postnasal drip; R06.2 Wheezing; F17.210 Nicotine dependence, cigarettes, uncomplicated
CPT/HCPCS: 99406; 94640 ×2; 99283; 71046; J3490 ×3; J7512; J7620

== ENCOUNTER 2018-06-24 10:28 | Emergency (ER) | payer MEDICAID ==
--- NOTE | 2018-06-24 12:32 | ER Document Report ---
ED General - General Chief Complaint: Urinary Problem Stated Complaint: BACK PAIN, FREQUENT URINATION, NAUSEA Time Seen by Provider: 06/24/18 12:20 Mode of Arrival: Ambulatory Information source: Patient TRAVEL OUTSIDE OF THE [place] IN LAST 30 DAYS: No - HPI Patient complains to provider of: Urinary pain Onset: Other - 23-year-old female with ureteral reflux who presents for evaluation of urinary burning and urgency. In the past has had recurrent urinary tract infections due to ureteral reflux. Notes that her back began her on [place] maninder it has worsened over the last 2 days since this morning she took some Azo to try and help with it and subsequently she presented to the emergency room. She denies any fevers or chills nausea abdominal pain diarrhea constipation rashes or other symptoms. This is very similar to previous episodes of urinary tract infections. - Related Data Allergies/Adverse Reactions: benztropine mesylate [From gauzz] Allergy (Mild, Verified 06/24/18 10:32) Past Medical History - General Information source: Patient - Social History Smoking Status: Never Smoker Family History: Arthritis, CAD, DM, Hyperlipidemia, Hypertension, Malignancy, Thyroid Disfunction. denies: COPD, CVA Pulmonary Medical History: Reports: Hx Bronchitis Renal/ Medical History: Denies: Hx Peritoneal Dialysis Musculoskeletal Medical History: Reports Hx Musculoskeletal Trauma Psychiatric Medical History: Reports: Hx Attention Deficit Hyperactivity Disorder, Hx Bipolar Disorder, Hx Depression Traumatic Medical History: Reports: Hx Fractures - Foot - Immunizations Immunizations up to date: Yes Hx Diphtheria, Pertussis, Tetanus Vaccination: Yes Review of Systems - Review of Systems -: Yes All other systems reviewed and negative Physical Exam - Vital signs Vitals: Temp Pulse Resp BP Pulse Ox 97.8 F 68 16 120/69 98 06/24/18 10:35 06/24/18 10:35 06/24/18 10:35 06/24/18 10:35 06/24/18 10:35 Interpretation: Normal - General General appearance: Appears well, Alert - HEENT Head: Normocephalic, Atraumatic Eyes: Normal Pupils: PERRL - Respiratory Respiratory status: No respiratory distress Chest status: Nontender Breath sounds: Normal Chest palpation: Normal - Cardiovascular Rhythm: Regular Heart sounds: Normal auscultation Murmur: No - Abdominal Inspection: Normal Distension: No distension Bowel sounds: Normal Tenderness: Nontender Organomegaly: No organomegaly - Back Back: Normal, Nontender - Extremities General upper extremity: Normal inspection, Nontender, Normal color, Normal ROM, Normal temperature General lower extremity: Normal inspection, Nontender, Normal color, Normal ROM, Normal temperature, Normal weight bearing. No: Los's sign - Neurological Neuro grossly intact: Yes Cognition: Normal Orientation: AAOx4 [place] Coma Scale Eye Opening: Spontaneous [place] Coma Scale Verbal: Oriented [place] Coma Scale Motor: Obeys Commands [place] Coma Scale Total: 15 Speech: Normal Motor strength normal: LUE, RUE, LLE, RLE Sensory: Normal - Psychological Associated symptoms: Normal affect, Normal mood - Skin Skin Temperature: Warm Skin Moisture: Dry Skin Color: Normal Course - Re-evaluation Re-evalutation: 06/24/18 12:34 Is a well-appearing 23-year-old female who presents with urinary burning and urgency similar to previous urinary tract infections. Urinary culture and urinalysis ordered. Clinically this patient has signs and symptoms of cystitis. We will presumptively treat. Past urine cultures are not particularly useful as they have grown out mixed urogenital vinod in the past. Do not believe this represents any other serious cause of dysuria. Patient is well-appearing and tolerating p.o. - Vital Signs Vital signs: Temp Pulse Resp BP Pulse Ox 97.8 F 68 16 120/69 98 06/24/18 10:35 06/24/18 10:35 06/24/18 10:35 06/24/18 10:35 06/24/18 10:35 Discharge - Discharge Clinical Impression: Cystitis, Urinary urgency Condition: Good Disposition: HOME, SELF-CARE Instructions: Urinary Tract Infection ([facility]) Additional Instructions: You were seen today in the emergency department for urinary tract infection. Continue to use the Azo as needed. You have been given an antibiotic, because of your recurrent infections in the past you have been given an antibiotic which has a broader coverage. While you are taking this antibiotic you should not do any aggressive weight lifting or long distance running. Take it only as directed. Return in case of worsening fevers, chills, inability to eat or drink or if your symptoms change. Otherwise schedule follow-up with your primary physician. He should also attempt to contact a urologist for evaluation of your recurrent urinary tract infections. Prescriptions: Ciprofloxacin HCl [Cipro 500 mg Tablet] 500 mg PO BID #20 tablet
[2018-06-24 12:41] LABS: APPEARANCE,URINE SLIGHTLY-CLOUDY; BILIRUBIN,URINE NEGATIVE (NEGATIVE); COLOR,URINE AMBER; GLUCOSE, URINE NEGATIVE (NEGATIVE); KETONES,URINE NEGATIVE (NEGATIVE); LEUKOCYTE ESTERASE,URINE LARGE (NEGATIVE); NITRITE,URINE POSITIVE (NEGATIVE); PROTEIN,URINE NEGATIVE (NEGATIVE)
[2018-06-24 13:19] VITALS: BP 121/68
== END 2018-06-24 13:00 | disposition home or self-care (01) ==
LOC: ER 10:28
DX: N30.80 Other cystitis without hematuria (principal); R39.15 Urgency of urination; Z88.8 Allergy status to other drugs, medicaments and biological substances
CPT/HCPCS: 81001; 81025; 99283

== ENCOUNTER 2018-07-09 09:37 | Emergency (ER) | payer MEDICAID ==
[2018-07-09] MEDS ORDERED: ONDANSETRON 4 MG TAB.RAPDIS PO ONE (09:55)
--- NOTE | 2018-07-09 09:56 | ER Document Report ---
HPI - HPI Patient complains to provider of: Urinary frequency Time Seen by Provider: 07/09/18 09:49 Onset: Other - 2 weeks Onset/Duration: Persistent Quality of pain: Burning Pain Level: 3 Context: Patient presents complaining of urinary frequency the past 2 weeks. Patient complains of right flank pain with nausea and vomiting x1 episode today. Patient denies any fever. Patient states she was recently treated for UTI but does not feel like her symptoms resolved. Patient denies any vaginal leading or discharge. Associated Symptoms: Vomiting, Other - Urinary frequency, flank pain. denies: Fever Exacerbated by: Denies Relieved by: Denies Similar symptoms previously: Yes Recently seen / treated by doctor: Yes - ROS ROS below otherwise negative: Yes Systems Reviewed and Negative: Yes All other systems reviewed and negative - CONSTITUTIONAL Constitutional: DENIES: Fever, Chills - RESPIRATORY Respiratory: DENIES: Coughing - GASTROINTESTINAL Gastrointestinal: REPORTS: Nausea, Patient vomiting. DENIES: Abdominal Pain, Black / Bloody Stools - URINARY Urinary: REPORTS: Frequency - REPRODUCTIVE Reproductive: DENIES: :, Abnormal bleeding / discharge - MUSCULOSKELETAL Musculoskeletal: REPORTS: Back Pain. DENIES: Extremity pain - DERM Skin Color: Normal Skin Problems: None Past Medical History - General Information source: Patient Last Menstrual Period: 07/04/18 - Social History Smoking Status: Current Some Day Smoker Smoking Education Provided: Yes Frequency of alcohol use: None Drug Abuse: Marijuana Occupation: none Family History: Arthritis, CAD, DM, Hyperlipidemia, Hypertension, Malignancy, Thyroid Disfunction. denies: COPD, CVA Patient has suicidal ideation: No Patient has homicidal ideation: No Pulmonary Medical History: Reports: Hx Bronchitis Renal/ Medical History: Denies: Hx Peritoneal Dialysis Musculoskeletal Medical History: Reports Hx Musculoskeletal Trauma Psychiatric Medical History: Reports: Hx Attention Deficit Hyperactivity Disorder, Hx Bipolar Disorder, Hx Depression Traumatic Medical History: Reports: Hx Fractures - Foot Surgical Hx: Negative - Immunizations Immunizations up to date: Yes Hx Diphtheria, Pertussis, Tetanus Vaccination: Yes Vertical Provider Document - CONSTITUTIONAL Agree With Documented VS: Yes Exam Limitations: No Limitations General Appearance: WD/WN, No Apparent Distress - INFECTION CONTROL TRAVEL OUTSIDE OF THE [place] IN LAST 30 DAYS: No - HEENT HEENT: Atraumatic, Normocephalic - NECK Neck: Normal Inspection - RESPIRATORY Respiratory: Breath Sounds Normal, No Respiratory Distress - CARDIOVASCULAR Cardiovascular: Regular Rate, Regular Rhythm - GI/ABDOMEN Gastrointestinal: Abdomen Soft - BACK Back: CVA Tenderness-Right - MUSCULOSKELETAL/EXTREMETIES Musculoskeletal/Extremeties: WILSON WYL[place] - NEURO Level of Consciousness: Awake, Alert, Appropriate Motor/Sensory: No Motor Deficit - DERM Integumentary: Warm, Dry Course - Re-evaluation Re-evalutation: 07/09/18 10:54 Patient concerned that she has a UTI despite normal urine test results. Patient advised that a culture would be obtained. Offered patient pelvic examination for further evaluation to be sure she does not have any type of STD, patient declines at this time. We will treat back pain is musculoskeletal in nature at this time. Patient nontoxic in appearance. - Laboratory Laboratory results interpreted by me: 07/09/18 10:54 Labs- Entire Visit 07/09/18 10:01 Urine Color YELLOW Urine Appearance SLIGHTLY-CLOUDY Urine pH 5.0 Ur Specific [place] 1.026 Urine Protein NEGATIVE Urine Glucose (UA) NEGATIVE Urine Ketones NEGATIVE Urine Blood NEGATIVE Urine Nitrite NEGATIVE Urine Bilirubin NEGATIVE Urine Urobilinogen NEGATIVE Ur Leukocyte Esterase NEGATIVE Urine WBC (Auto) 3 Urine RBC (Auto) 3 Urine Bacteria (Auto) TRACE Squamous Epi Cells Auto 2 Urine Mucus (Auto) MOD Urine Ascorbic Acid NEGATIVE Urine HCG, Qual NEGATIVE Discharge - Discharge Clinical Impression: Urinary symptom or sign Low back pain Qualifiers: Chronicity: unspecified Back pain laterality: right Sciatica presence: without sciatica Qualified Code(s): M54.5 - Low back pain Nausea & vomiting Qualifiers: Vomiting type: unspecified Vomiting Intractability: non-intractable Qualified Code(s): R11.2 - Nausea with vomiting, unspecified Condition: Stable Disposition: HOME, SELF-CARE Instructions: Antinausea Medication ([facility]), Low Back Pain ([facility]), Vomiting ([facility]) Additional Instructions: Return immediately for any new or worsening symptoms Followup with your primary care provider, call tomorrow to make a followup appointment Urine culture is pending, we will call if you need any different treatment Prescriptions: Cyclobenzaprine HCl [Flexeril 10 Mg Tablet] 10 mg PO TID #15 tablet Naproxen [Naprosyn 250 Nmg Tablet] 1 tab PO BID #14 tablet Ondansetron HCl [Zofran 4 mg Tablet] 1 - 2 tab PO Q6 PRN #15 tablet PRN Reason: Referrals: GUANAKITO DUEÑAS PA [Primary Care Provider] - Follow up tomorrow
[2018-07-09 10:40] LABS: APPEARANCE,URINE SLIGHTLY-CLOUDY; BILIRUBIN,URINE NEGATIVE (NEGATIVE); COLOR,URINE YELLOW; GLUCOSE, URINE NEGATIVE (NEGATIVE); KETONES,URINE NEGATIVE (NEGATIVE); LEUKOCYTE ESTERASE,URINE NEGATIVE (NEGATIVE); NITRITE,URINE NEGATIVE (NEGATIVE); PROTEIN,URINE NEGATIVE (NEGATIVE); URINE SPECIFIC GRAVITY 1.026; UROBILINOGEN,URINE NEGATIVE mg/dL (<2.0)
[2018-07-09 11:06] VITALS: BP 131/78
== END 2018-07-09 11:06 | disposition home or self-care (01) ==
LOC: ER 09:37
DX: R35.0 Frequency of micturition (principal); M54.5 Low back pain; R11.2 Nausea with vomiting, unspecified; R10.9 Unspecified abdominal pain; F17.200 Nicotine dependence, unspecified, uncomplicated
CPT/HCPCS: 99283; 51701; 87086; 81025; 81001; S0119

== ENCOUNTER 2019-08-28 23:58 | Emergency (ER) | payer MEDICAID ==
--- NOTE | 2019-08-29 00:20 | ER Document Report ---
ED Medical Screen (RME) - General Chief Complaint: Sore Throat Stated Complaint: SORE THROAT/FEVER/VOMITING Time Seen by Provider: 08/29/19 00:18 Mode of Arrival: Ambulatory Information source: Patient Notes: 24-year-old female presented to ED for complaint of sore throat fever body aches vomited yesterday. She states her last menstrual period was August 07, 2019. She states her throat is much more sore on the right side than on the left side. Her right tonsil is a lot larger than the left and her uvula is swollen. She is alert oriented respirations regular nonlabored speaking in full sentences. I have greeted and performed a rapid initial assessment of this patient. A comprehensive ED assessment and evaluation of the patient, analysis of test results and completion of medical decision making process will be conducted by an additional ED providers. TRAVEL OUTSIDE OF THE [place] IN LAST 30 DAYS: No - Related Data Allergies/Adverse Reactions: benztropine mesylate [From Cogentin] Allergy (Mild, Verified 07/09/18 09:39) Past Medical History - General Information source: Patient - Social History Cigarette use (# per day): Yes - Once or twice a month Frequency of alcohol use: Occasional Drug Abuse: Marijuana Lives with: Family Pulmonary Medical History: Reports: Hx Bronchitis Renal/ Medical History: Denies: Hx Peritoneal Dialysis Musculoskeltal Medical History: Reports Hx Musculoskeletal Trauma Psychiatric Medical History: Reports: Hx Attention Deficit Hyperactivity Disorder, Hx Bipolar Disorder, Hx Depression Traumatic Medical History: Reports: Hx Fractures - Foot - Immunizations Immunizations up to date: Yes Hx Diphtheria, Pertussis, Tetanus Vaccination: Yes Physical Exam - Vital signs Vitals: Temp Pulse Resp BP Pulse Ox 97.6 F 82 16 130/62 H 100 08/29/19 00:12 08/29/19 00:12 08/29/19 00:12 08/29/19 00:12 08/29/19 00:12 Course - Vital Signs Vital signs: Temp Pulse Resp BP Pulse Ox 97.6 F 82 16 130/62 H 100 08/29/19 00:12 08/29/19 00:12 08/29/19 00:12 08/29/19 00:12 08/29/19 00:12
[2019-08-29 00:53] LABS: HEMATOCRIT 39.4 % (36.0-47.0); HEMOGLOBIN 12.9 g/dL (12.0-15.5); MEAN CORPUSCULAR HEMOGLOBIN 28.9 pg (27.0-33.4); MEAN CORPUSCULAR HGB CONC 32.8 g/dL (32.0-36.0); MEAN CORPUSCULAR VOLUME 88 fl (80-97); PLATELET COUNT 229 10^3/uL (150-450); RED BLOOD COUNT 4.48 10^6/uL (3.72-5.28); RED CELL DISTRIBUTION WIDTH 13.1 % (11.5-14.0); WHITE BLOOD COUNT 20.2 10^3/uL (4.0-10.5)
[2019-08-29 00:59] LABS: ALBUMIN 4.3 g/dL (3.5-5.0); ALKALINE PHOSPHATASE 54 U/L (38-126); ANION GAP 10 (5-19); ASPARTATE AMINO TRANSFERASE 21 U/L (14-36); BILIRUBIN,DIRECT 0.3 mg/dL (0.0-0.4); BILIRUBIN,TOTAL 0.5 mg/dL (0.2-1.3); BLOOD UREA NITROGEN 12 mg/dL (7-20); CALCIUM 9.7 mg/dL (8.4-10.2); CARBON DIOXIDE 28 mmol/L (22-30); CHLORIDE 101 mmol/L (98-107); GLUCOSE 95 mg/dL (75-110); TOTAL PROTEIN 7.4 g/dL (6.3-8.2)
[2019-08-29 01:01] LABS: APPEARANCE,URINE SLIGHTLY-CLOUDY; BILIRUBIN,URINE NEGATIVE (NEGATIVE); COLOR,URINE YELLOW; GLUCOSE, URINE NEGATIVE (NEGATIVE); KETONES,URINE NEGATIVE (NEGATIVE); PROTEIN,URINE NEGATIVE (NEGATIVE); URINE SPECIFIC GRAVITY 1.012; UROBILINOGEN,URINE NEGATIVE mg/dL (<2.0)
[2019-08-29 01:12] LABS: ABSOLUTE LYMPHOCYTES# (MANUAL) 2.4 10^3/uL (0.5-4.7); BAND NEUTROPHILS % (MANUAL) 2 % (3-5); BASOPHILS % (MANUAL) 0 % (0-2); EOSINOPHILS % (MANUAL) 0 % (0-6); LYMPHOCYTES % (MANUAL) 12 % (13-45); MONOCYTES % (MANUAL) 10 % (3-13); PLATELET COMMENT ADEQUATE; RBC MORPHOLOGY COMMENT NORMO-CYTIC/CHROMIC; SEGMENTED NEUTROPHILS % (MAN) 76 % (42-78); TOTAL CELLS COUNTED 100
[2019-08-29] MEDS ORDERED: KETOROLAC TROMETHAMINE INJ/PF 30 MG/1 ML SDV IV ONE (01:42)
[2019-08-29] MEDS ORDERED: DEXAMETHASONE SOD PHOS INJ 10 MG/1 ML VIAL IV ONE (01:43)
[2019-08-29] MEDS ORDERED: NORMAL SALINE 1000 ML 1,000 ML IV ONE (01:44)
--- NOTE | 2019-08-29 03:17 | ER Document Report ---
Entered by HEMA STEIN SCRIBE 08/29/19 0126 Acting as scribe for:NIRMALA SEXTON IV, MD ED General - General Chief Complaint: Sore Throat Stated Complaint: SORE THROAT/FEVER/VOMITING Time Seen by Provider: 08/29/19 00:18 Primary Care Provider: NANDO GONZALEZ PA-C [Primary Care Provider] - Follow up as needed Mode of Arrival: Ambulatory Information source: Patient Notes: This 24 year old female patient presents to the ED today with complaints of sore throat, worse on the right side than the left that started x1 day ago. Patient states that when she looked down her throat with a light, she noticed that her right tonsil was enlarged and that her uvula was swollen. Patient also reports fever, vomiting, and body aches. Patient states that her last menstrual period was on 08/07/2019. TRAVEL OUTSIDE OF THE [place] IN LAST 30 DAYS: No - Related Data Allergies/Adverse Reactions: benztropine mesylate [From [employer]] Allergy (Mild, Verified 07/09/18 09:39) Past Medical History - General Information source: Patient - Social History Smoking Status: Current Some Day Smoker Cigarette use (# per day): Yes - Once or twice a month Chew tobacco use (# tins/day): No Smoking Education Provided: No Frequency of alcohol use: Occasional Drug Abuse: Marijuana Lives with: Family Family History: Reviewed & Not Pertinent, Arthritis, CAD, DM, Hyperlipidemia, Hypertension, Malignancy, Thyroid Disfunction Patient has suicidal ideation: No Patient has homicidal ideation: No Pulmonary Medical History: Reports: Hx Bronchitis Musculoskeletal Medical History: Reports Hx Musculoskeletal Trauma Psychiatric Medical History: Reports: Hx Attention Deficit Hyperactivity Disorder, Hx Bipolar Disorder, Hx Depression Traumatic Medical History: Reports: Hx Fractures - Foot - Immunizations Immunizations up to date: Yes Hx Diphtheria, Pertussis, Tetanus Vaccination: Yes Review of Systems - Review of Systems Constitutional: See HPI, Fever EENT: See HPI, Throat pain Cardiovascular: No symptoms reported Respiratory: No symptoms reported Gastrointestinal: See HPI, Vomiting Genitourinary: No symptoms reported Female Genitourinary: See HPI, Last menstrual period - 08/07/2019 Musculoskeletal: See HPI, Other - Body aches Skin: No symptoms reported Hematologic/Lymphatic: No symptoms reported Neurological/Psychological: No symptoms reported -: Yes All other systems reviewed and negative Physical Exam - Vital signs Vitals: Temp Pulse Resp BP Pulse Ox 97.6 F 82 16 130/62 H 100 08/29/19 00:12 08/29/19 00:12 08/29/19 00:12 08/29/19 00:12 08/29/19 00:12 - General General appearance: Alert - HEENT Head: Normocephalic, Atraumatic Eyes: Normal Pupils: PERRL Pharynx: Erythema - Diffuse posterior pharyngeal erythema, Tonsillar hypertrophy - Bilateral tonsillar edema, right markedly enlarged compared to the left., Other - No uvular deviation. No trismus. No submandibular swelling. Patient is managing secretions.. No: Exudate - Respiratory Respiratory status: No respiratory distress Chest status: Nontender Breath sounds: Normal. No: Stridor Chest palpation: Normal - Cardiovascular Rhythm: Regular Heart sounds: Normal auscultation Murmur: No Friction rub: No Gallop: None auscultated - Abdominal Inspection: Normal Distension: No distension Bowel sounds: Normal Tenderness: Nontender - Abdomen soft Organomegaly: No organomegaly - Back Back: Normal, Nontender - Extremities General upper extremity: Normal inspection General lower extremity: Normal inspection - Neurological Neuro grossly intact: Yes - Psychological Associated symptoms: Normal affect, Normal mood - Skin Skin Temperature: Warm Skin Moisture: Dry Skin Color: Normal Course - Re-evaluation Re-evalutation: 08/29/19 03:55 Results of ED MSE discussed with patient. All questions were answered prior to discharge. Emergency signs and symptoms, reasons to return to the ED discussed with patient. - Vital Signs Vital signs: Temp Pulse Resp BP Pulse Ox 97.6 F 82 16 130/62 H 100 08/29/19 00:12 08/29/19 00:12 08/29/19 00:12 08/29/19 00:12 08/29/19 00:12 - Laboratory Result Diagrams: 08/29/19 00:20 08/29/19 00:20 Laboratory results interpreted by me: 08/29/19 08/29/19 00:20 00:20 WBC 20.2 H Band Neutrophils % 2 L Lymphocytes % (Manual) 12 L Abs Neuts (Manual) 15.8 H Abs Monocytes (Manual) 2.0 H Leukocyte Esterase Rfl SMALL H Discharge - Discharge Clinical Impression: Acute pharyngitis Qualifiers: Pharyngitis/tonsillitis etiology: unspecified etiology Qualified Code(s): J02.9 - Acute pharyngitis, unspecified Condition: Good Disposition: HOME, SELF-CARE Instructions: Sore Throat ([facility]) Additional Instructions: Return to the Emergency Department without delay if any worse. HOME CARE INSTRUCTIONS & INFORMATION: Thank you for choosing us for your medical needs. We hope you're satisfied with the care you received. After you leave, you must properly care for your problem and, at the same time, observe its progress. Any condition can change. Some illnesses can change rapidly over hours or days. If your condition worsens, return to the Emergency Department or see your physician promptly. ABOUT YOUR X-RAYS AND EKG'S: If you had an EKG or X-rays taken, they have been read by the Emergency Physician. The X-rays and EKG's will also be read by a Radiologist or Head Bookkeeper within 24 hours. If discrepancies are noted, you will be notified by telephone. Please be certain the ED has a correct telephone number & address where you can be reached. Also, realize that some fractures or abnormalities do not show up on initial X-rays. If your symptoms continue, see your physician. ABOUT YOUR LABORATORY TEST: If you had laboratory tests, the results have been reviewed by the Emergency Physician. Some test results (for example cultures) may not be available for several days. You will be contacted if any test result shows you need additional treatment. Please be certain the ED has a correct telephone number and address where you can be reached. ABOUT YOUR MEDICATIONS: You will receive instructions on how to take your medicine on the prescription label you receive. Additional information may be provided by the Pharmacy. If you have questions afterwards, call the ED for clarification or further instructions. Some prescribed medications may cause drowsiness. Do not perform tasks such as driving a car or operating machinery without consulting your Pharmacist. If you feel you need a refill of pain medication, your condition will need re-evaluation. Please do not call for a refill of any medication. ABOUT YOUR SIGNATURE: Signature of this document acknowledges to followin. Understanding that you received emergency treatment and that you may be released before al medical problems are known or treated. Please be certain the ED has a correct phone number & address where you can be reached. 2. Acknowledgement that you will arrange for follow-up care as recommended. 3. Authorization for the Emergency Physician to provide information to your follow-up Physician in order to maximize your care. AT ANY TIME, IF YOUR SYMPTOMS CHANGE SIGNIFICANTLY OR WORSEN OR YOU DEVELOP NEW SYMPTOMS, RETURN TO THE EMERGENCY DEPARTMENT IMMEDIATELY FOR RE-EVALUATION. OUR GOAL IS TO PROVIDE EXCELLENT MEDICAL CARE! WE HOPE THAT WE HAVE MET YOUR EXPECTATIONS DURING YOUR EMERGENCY DEPARTMENT VISIT AND THAT YOU FEEL YOU HAVE RECEIVED EXCELLENT CARE! Referrals: NANDO GONZALEZ PA-C [Primary Care Provider] - Follow up as needed I personally performed the services described in the documentation, reviewed and edited the documentation which was dictated to the scribe in my presence, and it accurately records my words and actions.
--- NOTE | 2019-08-29 03:27 | RADIOLOGY REPORT (SQ) ---
EXAM DESCRIPTION: CT NECK WITH IV CONTRAST COMPLETED DATE/TME: 08/29/2019 01:43 CLINICAL HISTORY: 24 years, Female, large right sided tonsillar swelling COMPARISON: None. TECHNIQUE: Axial CT images of the neck were obtained after the administration of IV contrast. Sagittal and coronal reformats were performed. DLP 535 Images stored on PACS. All CT scanners at this facility use dose modulation, iterative reconstruction, and/or weight based dosing when appropriate to reduce radiation dose to as low as reasonably achievable (ALARA). [facility]: Dose Right [facility]: CareDose [facility]: Dose Right [facility]: Teradose 4D [facility]: [employer] LIMITATIONS: None. FINDINGS: Streak artifact from dental metallic limits evaluations of the soft tissues of the upper neck and obscures portions of the tonsils. The tonsils have a heterogenous enhancement pattern. No peritonsillar abscess or mass is identified. Cervical lymph nodes measure up to. The parotid, submandibular, and thyroid glands appear unremarkable. Vascular enhancement is normal. The epiglottis is normal. The prevertebral soft tissues are normal. No displacement of the parapharyngeal fat. The senior manufacturing supervisor space is unremarkable. The visualized lung apices are clear. The visualized intracranial structures are unremarkable. The visualized intracranial structures are unremarkable. The bones are normal. IMPRESSION: Heterogenous enhancement pattern of the tonsils, which may be due to mild tonsillitis. No evidence of a peritonsillar abscess. TECHNICAL DOCUMENTATION: Quality ID # [id number]: Final reports with documentation of one or more dose reduction techniques (e.g., Automated exposure control, adjustment of the mA and/or kV according to patient size, use of iterative reconstruction technique) copyright 2011 [employer]- All Rights Reserved
[2019-08-29 04:25] VITALS: BP 124/78
== END 2019-08-29 04:25 | disposition home or self-care (01) ==
LOC: ER 23:58
DX: J02.9 Acute pharyngitis, unspecified (principal); J35.1 Hypertrophy of tonsils; R50.9 Fever, unspecified; R11.10 Vomiting, unspecified; F17.210 Nicotine dependence, cigarettes, uncomplicated; F12.10 Cannabis abuse, uncomplicated; Z88.8 Allergy status to other drugs, medicaments and biological substances
CPT/HCPCS: 99283; 96361; 96374; 96375; 36415; 87070; 87880; 84703; 85025; 80053; 81001; 70491; J1885; J7030; J1100